=== PATIENT | male | born 1965 | race Caucasian/White ===

== ENCOUNTER 2021-07-29 12:56 | Emergency (ER) | payer SELFPAY ==
[~2021-07-29] VITALS: Ht 188 cm; Wt 90.7 kg
[2021-07-29] MEDS ORDERED: HYDROCODON-ACE1 EA11 PO (15:16)
[2021-07-29] MEDS ORDERED: BACTRIM DS TAB1 EACH PO (15:16)
== END 2021-07-29 15:24 | disposition home or self-care (01) ==
LOC: ED 12:56
DX: N49.2 Inflammatory disorders of scrotum (principal)
CPT/HCPCS: 99283

== ENCOUNTER 2022-03-31 17:50 | Emergency (ER) | payer BC ==
[~2022-03-31] VITALS: Ht 188 cm; Wt 90.7 kg
[~2022-03-31 17:50] MED LIST: BACTRIM DS TAB1 EACH PO; HYDROCODON-ACE1 EA11 PO
--- OUTSIDE RECORDS SUMMARY | 2022-03-31 17:52 | XMS ---
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 - Patient with suicidal and/or homicidal ideations eloped. - Patient eloped with IV in place. Details: Patient LWOB CRITERIA MET - [facility] - 3 Facilities in 90 Days CARE PROVIDERS JESSICA GEE Nurse Practitioner: Family Current PHONE: [phone] LEW QUICK [facility] Current PHONE: Unknown Олег has no Care Guidelines for this patient. E.Luanne. VISIT COUNT (12 MO.) [facility]jit [facility] 1 [facility] 3 [place] [facility] TOTAL 6 NOTE: Visits indicate total known visits. ED/C VISIT TRACKING (12 MO.) 03/31/2022 17:51 [facility] [place] TYPE: Emergency COMPLAINT: - POST OP PAIN 01/30/2022 12:36 [facility] TYPE: Emergency DIAGNOSES: - Testicle Pain - Groin pain X years - Ann pain X years - Right testicular pain - Cyst of epididymis 01/16/2022 11:34 [facility] [place] TYPE: Emergency COMPLAINT: - TESTICLE PAIN 01/11/2022 16:25 [facility] TYPE: Emergency COMPLAINT: - WOUND CHECK 07/29/2021 12:57 [facility] TYPE: Emergency COMPLAINT: - TESTICLE SWELLING, SORES, BOILS DIAGNOSES: - Scrotal pain - Inflammatory disorders of scrotum 04/11/2021 11:21 [facility] TYPE: Emergency COMPLAINT: - Walk In_INGROWN HAIRS /BOILS - ABSCESS OF EPIDIDYMIS OR TESTIS DIAGNOSES: 0. Abscess of epididymis or testis 1. Left testicular pain INPATIENT VISIT TRACKING (12 MO.) No inpatient visits to display in this time frame [email or web address]
== END 2022-03-31 20:15 | disposition home or self-care (01) ==
LOC: ED 17:50
DX: G89.18 Other acute postprocedural pain (principal); N50.811 Right testicular pain
CPT/HCPCS: 96372; 99283; J1170